=== PATIENT | female | born 2000 | race Caucasian/White ===

== ENCOUNTER 2021-07-24 23:15 | Inpatient (IN) ==
[2021-07-25 00:38] LABS: Basophils % 0.1 % (0.0-0.8); Eosinophils % 0.3 % (0.00-10.9); Hematocrit 32.7 VOL% (35.7-47.0); Hemoglobin 10.7 GM/DL (12.0-16.0); Immature Granulocytes % 1.2 %; Immature Granulocytes Absolute 0.14 #; Lymphocytes % 17.5 % (21.3-54.2); Mean Corpuscular HGB Conc 32.7 GM/DL (32-36); Mean Corpuscular Volume 88.6 FL (87-102); Mean Platelet Volume 11.8 FL (9.6-12.0); Monocytes % 7.5 % (1.7-12.7); Neutrophils % 73.4 % (38.7-73.9); Platelet Count 223 T/CUMM (130-400); Red Blood Count 3.69 MC/CUMM (3.8-5.5); Red Cell Distribution Width 14.9 % (9.3-17.3); White Blood Count 11.6 T/CUMM (4-12)
[2021-07-25 00:48] LABS: Alanine Aminotransferase 25 U/L (13-56); Albumin 2.8 G/DL (3.4-5.0); Alkaline Phosphatase 113 U/L (45-117); Aspartate Amino Transferase 25 U/L (0-37); Bilirubin,Total < 0.39 MG/DL (0.20-1.00); Blood Urea Nitrogen 11 MG/DL (7-18); Calcium 8.9 MG/DL (8.5-10.1); Carbon Dioxide 20 MMOL/L (21-32); Estimated Glom Filtration Rate 102 ML/MIN; Glucose 103 MG/DL (74-106); Osmolality,Calculated 273.7 MOS/KG (273-304); Potassium 3.6 MMOL/L (3.5-5.1); Sodium 138 MMOL/L (136-145); Total Protein 6.6 G/DL (6.4-8.2)
[2021-07-25] MEDS: LACTATED RINGERS 1,000 ML IV SCH (13:56)
[2021-07-25] MEDS ORDERED: OXYTOCIN/LR 20 UNIT/1,000 ML BAG IV SCH (14:00)
[2021-07-25] MEDS ORDERED: DINOPROSTONE 10 MG VAG.INSERT VAG ONE (15:00)
[2021-07-25] MEDS: ONDANSETRON 4 MG/2 ML VIAL IV PRN ×2 (15:51→21:30)
[2021-07-25] MEDS: MEPERIDINE 50 MG/1 ML VIAL IV PRN ×2 (15:55→21:31)
[2021-07-26] MEDS ORDERED: OXYTOCIN/LR 20 UNIT/1,000 ML BAG IV ONE ×2 (01:04→17:32)
[2021-07-26] MEDS ORDERED: OXYTOCIN/LR 20 UNIT/1,000 ML BAG IV PRN (01:07)
[2021-07-26] MEDS: MEPERIDINE 50 MG/1 ML VIAL IV PRN (01:59)
[2021-07-26] MEDS ORDERED: CITRIC ACID/SODIUM CITRATE 30 ML UDCUP PO ONE (03:14)
[2021-07-26] MEDS ORDERED: NALOXONE 0.4 MG/ML VIAL IV PRN (03:14)
[2021-07-26] MEDS ORDERED: PROMETHAZINE 25 MG/1 ML VIAL IM ONE (03:14)
[2021-07-26] MEDS ORDERED: FAMOTIDINE 20 MG/2 ML VIAL IV ONE (03:14)
[2021-07-26] MEDS ORDERED: ePHEDrine 50 MG/ML VIAL IV PRN (03:14)
[2021-07-26] MEDS ORDERED: diphenhydrAMINE 50 MG/1 ML VIAL IV PRN ×2 (03:14)
[2021-07-26] MEDS ORDERED: hydrOXYzine HCL 25 MG/1 ML VIAL IM PRN (03:14)
[2021-07-26] MEDS ORDERED: fentaNYL 2 MCG/ROPIV 0.2% EPID 100 ML EPIDURAL SCH (03:30)
[2021-07-26] MEDS: LACTATED RINGERS 1,000 ML IV SCH ×2 (04:42→10:40)
[2021-07-26] MEDS ORDERED: ceFAZolin 2,000 MG/50 ML DUPLEX IV ONE (09:03)
[2021-07-26] MEDS ORDERED: OXYTOCIN 10 UNIT/ML VIAL IM ONE (09:33)
[2021-07-26] MEDS ORDERED: OXYTOCIN/LR 30 UNIT/1,000 ML BAG IV ONE (09:33)
[2021-07-26] MEDS ORDERED: miSOPROStoL 200 MCG TABLET ONE (13:27)
[2021-07-26] MEDS ORDERED: TRANEXAMIC ACID 1,000 MG/10 ML VIAL ONE (13:27)
[2021-07-26] MEDS ORDERED: CARBOPROST TROMETHAMINE 250 MCG/ML AMP IM ONE (13:28)
[2021-07-26] MEDS ORDERED: METHYLERGONOVINE 0.2 MG/1 ML AMP ONE (13:28)
[2021-07-26] MEDS ORDERED: SODIUM CHLORIDE 0.9% 0 ML IV ONE (13:28)
[2021-07-26] MEDS ORDERED: LIDOCAINE MPF 2% /EPI 20 ML VIAL ONE (13:49)
[2021-07-26] MEDS ORDERED: DEXMEDETOMIDINE 200 MCG/2 ML VIAL ONE (13:49)
[2021-07-26] MEDS ORDERED: MIDAZOLAM 2 MG/2 ML VIAL ONE (13:59)
[2021-07-26] MEDS ORDERED: ONDANSETRON 4 MG/2 ML VIAL ONE (14:08)
[2021-07-26] MEDS ORDERED: KETOROLAC 30 MG/1 ML VIAL ONE (14:08)
[2021-07-26 14:25] LABS: Cord Venous Blood HCO3 21.9 MMOL/L; Cord Venous Blood PCO2 44.2 MMHG; Cord Venous Blood PO2 18.8
[2021-07-26] MEDS ORDERED: HYDROmorphone 2 MG/1 ML VIAL IV PRN (14:39)
[2021-07-26] MEDS ORDERED: ACETAMINOPHEN 500 MG TABLET PO SCH (15:00)
[2021-07-26] MEDS: ONDANSETRON 4 MG/2 ML VIAL IV PRN (17:02)
[2021-07-26] MEDS ORDERED: RHO(D) IMMUNE GLOBULIN 300 MCG SYRINGE IM ONE (17:32)
[2021-07-26] MEDS ORDERED: ONDANSETRON 4 MG/2 ML VIAL IV PRN (17:32)
[2021-07-26] MEDS ORDERED: LACTATED RINGERS 1,000 ML IV SCH (17:32)
[2021-07-26] MEDS ORDERED: ACETAMINOPHEN 325 MG TABLET PO PRN (17:32)
[2021-07-26] MEDS ORDERED: MAGNESIUM HYDROXIDE SUSP 30 ML UDCUP PO PRN (17:32)
[2021-07-26] MEDS ORDERED: SCOPOLAMINE 1.5 MG PATCH TRANSDERM ONE (17:40)
[2021-07-26] MEDS: DOCUSATE SODIUM 100 MG CAPSULE PO SCH (20:39)
[2021-07-26] MEDS: ACETAMINOPHEN 500 MG TABLET PO SCH (20:40)
[2021-07-26] MEDS: KETOROLAC 30 MG/1 ML VIAL IV SCH (20:41)
[2021-07-26] MEDS ORDERED: KETOROLAC 30 MG/1 ML VIAL IV SCH (21:00)
[2021-07-26 22:43] LABS: Basophils % 0.2 % (0.0-0.8); Eosinophils % 0.2 % (0.00-10.9); Hematocrit 33.1 VOL% (35.7-47.0); Hemoglobin 10.6 GM/DL (12.0-16.0); Immature Granulocytes % 0.6 %; Immature Granulocytes Absolute 0.07 #; Lymphocytes # 1.1 10*3/uL (1.4-4.0); Lymphocytes % 9.2 % (21.3-54.2); Mean Corpuscular Volume 89.5 FL (87-102); Mean Platelet Volume 12.2 FL (9.6-12.0); Monocytes % 4.8 % (1.7-12.7); White Blood Count 12.5 T/CUMM (4-12)
[2021-07-26 22:44] LABS: Platelet Count 165 T/CUMM (130-400)
[2021-07-27] MEDS: KETOROLAC 30 MG/1 ML VIAL IV SCH ×2 (03:12→09:07)
[2021-07-27] MEDS: ACETAMINOPHEN 500 MG TABLET PO SCH ×2 (03:12→09:07)
[2021-07-27 05:55] LABS: Basophils % 0.3 % (0.0-0.8); Eosinophils # 0.1 10*3/uL (0.0-0.87); Eosinophils % 0.6 % (0.00-10.9); Hematocrit 30.4 VOL% (35.7-47.0); Hemoglobin 9.8 GM/DL (12.0-16.0); Immature Granulocytes % 0.5 %; Immature Granulocytes Absolute 0.05 #; Lymphocytes # 1.9 10*3/uL (1.4-4.0); Lymphocytes % 17.4 % (21.3-54.2); Mean Corpuscular HGB Conc 32.2 GM/DL (32-36); Mean Corpuscular Volume 88.6 FL (87-102); Mean Platelet Volume 12.1 FL (9.6-12.0); Monocytes % 5.8 % (1.7-12.7); Neutrophils % 75.4 % (38.7-73.9); Platelet Count 160 T/CUMM (130-400); Red Blood Count 3.43 MC/CUMM (3.8-5.5); Red Cell Distribution Width 15.1 % (9.3-17.3); White Blood Count 10.9 T/CUMM (4-12)
[2021-07-27] MEDS: DOCUSATE SODIUM 100 MG CAPSULE PO SCH ×2 (09:06→21:16)
[2021-07-27] MEDS: MULTIVITAMIN (PRENATAL) TABLET PO SCH (09:07)
[2021-07-27] MEDS: METOCLOPRAMIDE 10 MG TABLET PO SCH ×2 (09:07→19:08)
[2021-07-27] MEDS: SIMETHICONE CHEW 80 MG TABLET PO PRN ×2 (09:07→21:16)
[2021-07-27] MEDS: IBUPROFEN 800 MG TABLET PO PRN (17:46)
[2021-07-27] MEDS: FERROUS SULFATE 325 MG TABLET PO SCH (21:16)
[2021-07-28] MEDS: METOCLOPRAMIDE 10 MG TABLET PO SCH (01:03)
[2021-07-28] MEDS: IBUPROFEN 800 MG TABLET PO PRN (05:13)
[2021-07-28] MEDS: FERROUS SULFATE 325 MG TABLET PO SCH (08:31)
[2021-07-28] MEDS: MULTIVITAMIN (PRENATAL) TABLET PO SCH (08:31)
[2021-07-28] MEDS: DOCUSATE SODIUM 100 MG CAPSULE PO SCH (08:32)
[2021-07-28] MEDS ORDERED: SUMAtriptan 6 MG/0.5 ML VIAL SUBCUT ONE (11:52)
[2021-07-28 12:03] LABS: Basophils % 0.1 % (0.0-0.8); Eosinophils # 0.1 10*3/uL (0.0-0.87); Eosinophils % 0.6 % (0.00-10.9); Hematocrit 29.7 VOL% (35.7-47.0); Hemoglobin 9.1 GM/DL (12.0-16.0); Immature Granulocytes % 0.6 %; Immature Granulocytes Absolute 0.05 #; Lymphocytes # 1.3 10*3/uL (1.4-4.0); Lymphocytes % 15.2 % (21.3-54.2); Mean Corpuscular HGB Conc 30.6 GM/DL (32-36); Monocytes % 6.2 % (1.7-12.7); Neutrophils % 77.3 % (38.7-73.9); Platelet Count 161 T/CUMM (130-400); Red Blood Count 3.23 MC/CUMM (3.8-5.5); Red Cell Distribution Width 15.4 % (9.3-17.3); White Blood Count 8.6 T/CUMM (4-12)
[2021-07-28] MEDS: BUTALBITAL/ACETAMIN/CAFFEINE 50-325-40 MG TABLET PO SCH ×2 (13:13→17:45)
[2021-07-28 14:23] VITALS: BP 133/72
== END 2021-07-28 16:25 | disposition home or self-care (01) | DRG 540 ==
LOC: N.LD 23:15 → N.OB 07-26 17:30
PROVIDERS: ADMIT Obstetrics & Gynecology; ATTEND Obstetrics & Gynecology
PROC: LDCSECT (ICD-10-PCS; 2021-07-26 14:00)